=== PATIENT | male | born 1975 | race Caucasian/White ===

== ENCOUNTER 2018-08-12 14:39 | Emergency (ER) | payer OTHER ==
[2018-08-12 16:50] VITALS: BP 140/85
--- NOTE | 2018-08-12 17:07 | UC ---
Lower Extremity/Ankle HPI - HPI Summary HPI Summary: 43 y.o male s/p shelby placement from tib fib fx 2000, fell today with injury to prior fracture site, + immediate pain, difficulty walking due to pain. concerned about repeat fracture. No pmh, no medications recently moved, no PCP. prior imaging not available. - History of Current Complaint Chief Complaint: UCLowerExtremity Stated Complaint: NAVARRETE INJURY Time Seen by Provider: 08/12/18 16:40 Hx Obtained From: Patient, Family/Crop Insurance Claims Adjuster - Onset/Duration: Sudden Onset, Lasting Minutes Severity Initially: Severe Severity Currently: Severe Pain Intensity: 9 Pain Scale Used: 0-10 Numeric Aggravating Factor(s): Standing, Ambulation Alleviating Factor(s): Rest, Ice Able to Bear Weight: Yes - Allergies/Home Medications Allergies/Adverse Reactions: Allergies Allergy/AdvReac Type Severity Reaction Status Date / Time No Known Allergies Allergy Verified 08/12/18 16:50 Home Medications: Home Medications Zolpidem TAB* [Ambien*] 1 tab PO BEDTIME PRN 08/12/18 [History Confirmed ] PMH/Surg Hx/FS Hx/Imm Hx Previously Healthy: Yes - prior fracture - Surgical History Surgical History: Yes Surgery Procedure, Year, and Place: right lower leg with hardware, since removed - Social History Alcohol Use: Occasionally Substance Use Type: None Smoking Status (MU): Light Every Day Tobacco Smoker Type: Cigarettes Review of Systems Musculoskeletal: Arthralgia, Decreased ROM, Edema Is Patient Immunocompromised?: No All Other Systems Reviewed And Are Negative: Yes Physical Exam Triage Information Reviewed: Yes Appearance: Well-Appearing, Well-Nourished, Pain Distress - none at rest, moderate with movement/ ambulation Vital Signs: Initial Vital Signs Temp 97.1 F 08/12/18 16:43 Pulse 68 08/12/18 16:43 Resp 16 08/12/18 16:43 BP 140/85 08/12/18 16:43 Pulse Ox 99 08/12/18 16:43 Vital Signs Reviewed: Yes Musculoskeletal: Positive: Other: - negatvie homans, SITLT at ankle, full ankle ROM without difficulty, TTP over firm mass on anterior mid navarrete, patient states deformity was from fx in 2000, mild edema, mild swelling. Neurological Exam: Normal - SITLT Skin: Positive: Other - skin intact , + mild ecchymosis Lower Extremity Course/Dx - Course Course Of Treatment: x-ray reviewed jem deformity noted over prior fracure site, no acute fx. WBAT, crutches, follow up with ortho if no improvement 3-5 days - Differential Dx/Diagnosis Provider Diagnoses: bone contusion Discharge - Sign-Out/Discharge Documenting (check all that apply): Patient Departure All imaging exams completed and their final reports reviewed: Yes - Discharge Plan Condition: Good Disposition: HOME Patient Education Materials: Naproxen (By mouth), R.I.C.E. Treatment (ED) Referrals: Clarke Villalobos MD [Medical Doctor] - No Primary Care Phys,NOPCP [Primary Care Provider] - Additional Instructions: - Naproxen or motrin as needed for pain - Crutches- weight bearing as tolerated - If no improvement within 2-3 days, follow up with orthopedics - Rest, ice and elevate. - GO to ER with numbness of toes, increased pain, tight calf. - Billing Disposition and Condition Condition: GOOD Disposition: Home
--- NOTE | 2018-08-12 17:29 | RAD ---
Indication: Right navarrete pain after trauma. 2 views of the right lower extremity was performed. Evidence of calcification is noted in the mid shaft of the tibia in its ventral aspect. This may be sequela from prior surgery. Evidence of old fracture of the proximal fibula is noted. No recent fracture is identified. IMPRESSION: Exostosis arising from the ventral mid shaft of the tibia. There is healing fracture proximal fibula. This may be sequela from prior injury.
[2018-08-12] MEDS ORDERED: Naproxen TAB* 250 MG PO ONE (17:40)
--- NOTE | 2018-08-13 08:30 | UC ---
- Progress Note Progress Note: Patient Name: DAY INFANTE Medical Record#: [id number] Ordering Physician: Sissy LAURENT Acct.#: [id number] : 1975 Age: 43 Sex: M Location: [facility] Exam Date: 08/12/181654 ADM Status: REG ER Order Information: LOWER LEG RIGHT Accession Number: [id number] CPT: 10035 Indication: Right navarrete pain after trauma. 2 views of the right lower extremity was performed. Evidence of calcification is noted in the mid shaft of the tibia in its ventral aspect. This may be sequela from prior surgery. Evidence of old fracture of the proximal fibula is noted. No recent fracture is identified. IMPRESSION: Exostosis arising from the ventral mid shaft of the tibia. There is healing fracture proximal fibula. This may be sequela from prior injury. <Electronically signed by Adrianna Zacarias MD in [place]> 08/12/181725 Dictated By: Adrianna Zacarias MD Dictated Date/Time: 08/12/181725 Transcribed Date/Time: 08/12/181723 Copy to: CC:Sissy LAURENT; No Primary Care Phys,NOPCP ; Clive Bautista MD Imaging - [facility] Imaging - [facility] [address] [address] ph ([phone]) ph ([phone]) ph ([phone]) This report is only to be considered final once signed by the Provider(s) as displayed in the "<Electronically Signed by >" field (s). Absence of a signature indicates the report is in a draft status and still needs to be finalized. In the event this document was created by someone other than the signing Provider, the individual initiating the document will be listed in the "Entered by:" or "Dictated by:" robertson. 1 of 1 Discharge - Sign-Out/Discharge Documenting (check all that apply): Post-Discharge Follow Up All imaging exams completed and their final reports reviewed: Yes - Discharge Plan Condition: Good Disposition: HOME Patient Education Materials: Naproxen (By mouth), R.I.C.E. Treatment (ED) Referrals: Clarke Villalobos MD [Medical Doctor] - No Primary Care Phys,NOPCP [Primary Care Provider] - Additional Instructions: - Naproxen or motrin as needed for pain - Crutches- weight bearing as tolerated - If no improvement within 2-3 days, follow up with orthopedics - Rest, ice and elevate. - GO to ER with numbness of toes, increased pain, tight calf. - Billing Disposition and Condition Condition: GOOD Disposition: Home
== END 2018-08-12 17:55 | disposition home or self-care (01) ==
LOC: UCEAST 14:39
DX: S80.11XA Contusion of right lower leg, initial encounter (principal); W19.XXXA Unspecified fall, initial encounter; Y92.9 Unspecified place or not applicable; F17.210 Nicotine dependence, cigarettes, uncomplicated
CPT/HCPCS: 99213; A9270-GY; G0463

== ENCOUNTER 2019-01-05 17:41 | Emergency (ER) | payer OTHER ==
[2019-01-05 17:54] VITALS: BP 125/86
--- NOTE | 2019-01-05 18:06 | UC ---
Hand/Wrist HPI - HPI Summary HPI Summary: 43 y/o male presents to the urgent care c/o left wrist pain s/p fall while ice skating around 1645pm today. Pt reports he fell backwards and all his body weight went over the left hand. Pain now is 8/10 w/ radiation to his left finger. Pt has not taking anything to alleviate symptoms. Pt denies numbness or tingling sensation, but has decrease ROM due to pain. Pt denies head injury, SOB, chest pain, abdominal pain, N/V/d. No previous injury to his left hand. - History Of Current Complaint Chief Complaint: UCUpperExtremity Stated Complaint: WRIST INJURY Time Seen by Provider: 01/05/19 18:05 Hx Obtained From: Patient ?: No Onset/Duration: Sudden Onset, Lasting Hours - 2hr Severity Initially: Severe Severity Currently: Moderate Pain Intensity: 8 Pain Scale Used: 0-10 Numeric Character Of Pain: Sharp, Throbbing Aggravating Factor(s): Movement, Lifting, Pulling Alleviating Factor(s): Rest, Ice Associated Signs And Symptoms: Positive: Swelling. Negative: Bruising, Numbness /Tingling Related History: Dominant Hand Right - Allergies/Home Medications Allergies/Adverse Reactions: Allergies Allergy/AdvReac Type Severity Reaction Status Date / Time No Known Allergies Allergy Verified 01/05/19 17:54 PMH/Surg Hx/FS Hx/Imm Hx Previously Healthy: Yes - Pt denies PMHX - Surgical History Surgical History: Yes Surgery Procedure, Year, and Place: right lower leg with hardware, since removed - Family History Known Family History: Positive: None - Pt denies FMHX - Social History Occupation: Employed Full-time Lives: With Family Alcohol Use: Daily Substance Use Type: None Smoking Status (MU): Current Every Day Smoker Type: Cigarettes Amount Used/How Often: 1/2 PPD Review of Systems All Other Systems Reviewed And Are Negative: Yes Constitutional: Positive: Negative Skin: Positive: Other - left hand swelling s/p fall while ice skating Eyes: Positive: Negative ENT: Positive: Negative Respiratory: Positive: Negative Cardiovascular: Positive: Negative Gastrointestinal: Positive: Negative Genitourinary: Positive: Negative Motor: Positive: Negative Neurovascular: Positive: Negative Musculoskeletal: Positive: Decreased ROM - left hand s/p fall, Other: - left hand pain s/p falling while ice skating about 2 hrs ago Neurological: Positive: Negative Psychological: Positive: Negative Is Patient Immunocompromised?: No Physical Exam - Summary Physical Exam Summary: Vital Signs Reviewed: Yes General: Well-Appearing, No Pain Distress, Well-Nourished male w/o any apparent pain distress Eyes: Positive: Conjunctiva Clear - PERRLA, EOMI ENT: Positive: Normal ENT inspection, Hearing grossly normal, Pharynx normal, TMs normal, Uvula midline Neck: Positive: Supple, Nontender, No Lymphadenopathy Respiratory: Positive: Chest non-tender, Lungs clear, Normal breath sounds, No respiratory distress Cardiovascular: Positive: RRR, No Murmur, Pulses Normal, Brisk Capillary Refill Abdomen Description: Positive: Nontender, No Organomegaly, Soft. Negative: CVA Tenderness (R), CVA Tenderness (L) Bowel Sounds: Positive: Present Musculoskeletal: Positive: Strength Intact, Other: Neurological Exam: Normal Musculoskeletal: Positive Left Wrist: the L wrist and hand is without obvious asymmetry or deformity when compared to the R wrist. No surface trauma, open wounds, swelling, or obvious deformity. No overlying erythema or warmth. No bony crepitus. Point tenderness over the dorsal side of the left hand w/ mild swelling, no ecchymosis or bruise observed , no point tenderness over the thenar eminence. No scaphoid fullness or tenderness to direct palpation or axial load. Decreased ROM due to pain. Motor/sensory function of ulnar, radial , median nerves intact. Ulnar and radial pulses intact. Psychological Exam: Normal Skin Exam: Normal Triage Information Reviewed: Yes Vital Signs: Initial Vital Signs Temp 97.6 F 01/05/19 17:50 Pulse 78 01/05/19 17:50 Resp 16 01/05/19 17:50 BP 125/86 01/05/19 17:50 Pulse Ox 100 01/05/19 17:50 Hand/Wrist Course/Dx - Course Course Of Treatment: 43 y/o male presents to the urgent care c/o left wrist pain s/p fall while ice skating around 1645pm today. Pt reports he fell backwards and all his body weight went over the left hand. Pain now is 8/10 w/ radiation to his left finger. Pt has not taking anything to alleviate symptoms. Pt denies numbness or tingling sensation, but has decrease ROM due to pain. Pt denies head injury, SOB, chest pain, abdominal pain, N/V/d. No previous injury to his left hand. Hx obtained. LF wrist X-ray ordered. Impression: Possible non displaced fracuture of the pisiform bone. Dr Ballard agrees w/ radiology reading. However final radiology reports will be done tomorrow. Pt will be notified of any other abnormality. Pt given at the clinic ibuprofen PO and ice by the nurse to alleviate pain and swelling. pt tolerated well medication. Pts wrist immobilized with thumb spica splint. Advised RICE : Rest, Ice, elevation, Ibuprofen PO. There was no neurovascular compromise after splint application placed by nurse; the splint was in good alignment and the pt had good sensation and capillary refill at the time of discharge.Pt advised to f/u w/ Orthopedic Dr Torres in 1-2 days for further management on his hand fracture. D/C instructions explained. Pt understood and agreed w/ plan of care. - Differential Dx/Diagnosis Differential Diagnosis/HQI/PQRI: Abrasion, Contusion, Dislocation, Fracture, Sprain, Tendonitis Provider Diagnosis: Left hand fracture Discharge - Sign-Out/Discharge Documenting (check all that apply): Patient Departure - d/c home All imaging exams completed and their final reports reviewed: No - Discharge Plan Condition: Stable Disposition: HOME Patient Education Materials: Hand Fracture (ED) Referrals: [facility] [place] [facility] [place]] - If Needed Clarke Torres MD [Medical Doctor] - 1 Day Additional Instructions: 1-Please take Ibuprofen 600mg PO q6-8hrs as directed after meals to alleviate pain and swelling. 2-Please apply ice, keep your hand immobilized with the splint. Avoid heavy lifting or strenuous exercise. Keep your hand elevated to decrease swelling. 3- Please f/u with Orthopedic Dr Torres in 1-2 days for further evaluation and treatment on your fracture. 4- final radiology reports will be done tomorrow morning. You will be notified of any other abnormality - Billing Disposition and Condition Condition: STABLE Disposition: Home - Attestation Statements Provider Attestation: I was available for consult. This patient was seen by the PEDRO. The patient was not presented to, seen by, or examined by me. -Ligia
[2019-01-05] MEDS ORDERED: Ibuprofen TAB* 400 MG PO ONE (18:19)
--- NOTE | 2019-01-06 08:24 | UC ---
- Progress Note Progress Note: 3 views of the wrist demonstrates suggestion of a nondisplaced fracture through the distal radius. Additionally there appears to be a fracture of the pubic to be the triquetrum. This is also identified on the lateral view. IMPRESSION: Fracture through the dorsal triquetrum. A nondisplaced radial fracture is also not excluded. Radiology wet reading last night was fracture of the pisiform bone - the official reading this morning does not ion exchange operator or plan of care. Please call pt and let him know the above - important to f/u with Ortho this week. Course/Dx - Diagnoses Provider Diagnoses: Left hand fracture Discharge - Sign-Out/Discharge Documenting (check all that apply): Post-Discharge Follow Up All imaging exams completed and their final reports reviewed: Yes - Discharge Plan Condition: Stable Disposition: HOME Patient Education Materials: Hand Fracture (ED) Referrals: [facility] [place] [facility] [Outside] - If Needed Clarke Torres MD [Medical Doctor] - 1 Day Additional Instructions: 1-Please take Ibuprofen 600mg PO q6-8hrs as directed after meals to alleviate pain and swelling. 2-Please apply ice, keep your hand immobilized with the splint. Avoid heavy lifting or strenuous exercise. Keep your hand elevated to decrease swelling. 3- Please f/u with Orthopedic Dr Torres in 1-2 days for further evaluation and treatment on your fracture. 4- final radiology reports will be done tomorrow morning. You will be notified of any other abnormality - Billing Disposition and Condition Condition: STABLE Disposition: Home
== END 2019-01-05 18:40 | disposition home or self-care (01) ==
LOC: UCEAST 17:41
DX: S62.115A Nondisplaced fracture of triquetrum [cuneiform] bone, left wrist, initial encounter for closed fracture (principal); V00.211A Fall from ice-skates, initial encounter; Y93.21 Activity, ice skating; F17.210 Nicotine dependence, cigarettes, uncomplicated
CPT/HCPCS: 99213; A9270-GY; G0463

== ENCOUNTER 2019-04-17 16:20 | Emergency (ER) | payer OTHER ==
[2019-04-17 16:50] VITALS: BP 126/78
[2019-04-17] MEDS ORDERED: Ibuprofen TAB* 600 MG PO ONE (17:07)
--- NOTE | 2019-04-17 17:39 | UC ---
Lower Extremity/Ankle HPI - HPI Summary HPI Summary: 44 yo male injured his right 2nd toe when he accidentally kicked a box. Pain with wt bearing has crutches at home - History of Current Complaint Chief Complaint: UCLowerExtremity Stated Complaint: BROKEN TOE Time Seen by Provider: 04/17/19 17:04 Hx Obtained From: Patient Onset/Duration: Sudden Onset Severity Initially: Severe Pain Intensity: 0 - at rest Pain Scale Used: 0-10 Numeric Aggravating Factor(s): Standing, Ambulation Alleviating Factor(s): Rest Able to Bear Weight: Yes Feet (Multiple View): 1 - swollen /tender/ecchymotic - Allergies/Home Medications Allergies/Adverse Reactions: Allergies Allergy/AdvReac Type Severity Reaction Status Date / Time No Known Allergies Allergy Verified 04/17/19 16:44 PMH/Surg Hx/FS Hx/Imm Hx Previously Healthy: Yes - Surgical History Surgical History: Yes Surgery Procedure, Year, and Place: right lower leg with hardware, since removed - Family History Known Family History: Positive: None - Pt denies FMHX, Non-Contributory - Social History Alcohol Use: Weekly Substance Use Type: None Smoking Status (MU): Current Some Day Smoker Type: Cigarettes Amount Used/How Often: 1/2 PPD Review of Systems All Other Systems Reviewed And Are Negative: Yes Constitutional: Positive: Negative Skin: Positive: Bruising Eyes: Positive: Negative ENT: Positive: Negative Respiratory: Positive: Negative Cardiovascular: Positive: Negative Gastrointestinal: Positive: Negative Genitourinary: Positive: Negative Neurovascular: Positive: Negative Musculoskeletal: Positive: Arthralgia - R 2nd PIP (toe) Neurological: Positive: Negative Psychological: Positive: Negative Physical Exam Triage Information Reviewed: Yes Appearance: Well-Appearing, No Pain Distress, Well-Nourished Vital Signs: Initial Vital Signs Temp 98.2 F 04/17/19 16:44 Pulse 74 04/17/19 16:44 Resp 18 04/17/19 16:44 BP 126/78 04/17/19 16:44 Pulse Ox 97 04/17/19 16:44 Vital Signs Reviewed: Yes Eyes: Positive: Conjunctiva Clear ENT: Positive: Hearing grossly normal. Negative: Tonsillar swelling, Tonsillar exudate, Muffled voice, Hoarse voice Dental Exam: Normal Neck: Positive: Supple, Nontender, No Lymphadenopathy Respiratory: Positive: Lungs clear, Normal breath sounds, No respiratory distress Cardiovascular: Positive: RRR, No Murmur Musculoskeletal: Positive: Other: - see image Neurological: Positive: Alert Psychological Exam: Normal Skin Exam: Normal Lower Extremity Course/Dx - Differential Dx/Diagnosis Provider Diagnosis: Fracture of second toe, right, closed Discharge - Sign-Out/Discharge Documenting (check all that apply): Patient Departure All imaging exams completed and their final reports reviewed: Yes - Discharge Plan Condition: Stable Disposition: HOME Patient Education Materials: Toe Fracture (ED) Referrals: Salvador James MD [Medical Doctor] - Additional Instructions: brian tape post op shoe elevate ice use your crutches if necessary aleve 1-2 twice daily with food for pain - Billing Disposition and Condition Condition: STABLE Disposition: Home
== END 2019-04-17 17:58 | disposition home or self-care (01) ==
LOC: UCEAST 16:20
DX: S92.511A Displaced fracture of proximal phalanx of right lesser toe(s), initial encounter for closed fracture (principal); W22.8XXA Striking against or struck by other objects, initial encounter; Y92.9 Unspecified place or not applicable; F17.210 Nicotine dependence, cigarettes, uncomplicated
CPT/HCPCS: 99213; A9270-GY; G0463